=== PATIENT | female | born 1960 | race Caucasian/White ===

== ENCOUNTER 2023-01-21 20:44 | Observation (INO) ==
[2023-01-21 22:22] LABS: Appearance Urine Clear (Clear); Bacteria Urine Automated Negative (Negative); Bilirubin Urine Negative (Negative); Blood Urine Negative (Negative); Cast Urine Automated 0 /lpf (0-5); Color Urine Yellow; Epithelial Cell Urine Auto 20-30 /lpf (0-5); Glucose Urine UA 3+ (Negative); Ketones Urine Negative (Negative); Leukocyte Esterase Urine 2+ (Negative); Nitrite Urine Negative (Negative); Protein Urine Negative (Negative); RBC Urine Automated 0-4 /hpf (0-4); Specific Gravity Urine 1.023 (1.000-1.030); Urobilinogen Urine Negative (Negative); WBC Urine Automated >30 /hpf (0-5)
[2023-01-21 22:23] LABS: Basophils # (auto) 0.07 K/uL (0-0.2); Basophils % (auto) 0.7 %; Eosinophils # (auto) 0.17 K/uL (0-0.50); Eosinophils % (auto) 1.7 %; Hematocrit (blood only) 45.3 % (37.0-47.0); Hemoglobin 16.1 g/dl (12.0-16.0); Immature Granulocytes # (auto) 0.03 K/uL (0.01-0.20); Immature Granulocytes % (auto) 0.3 %; Lymphocytes # (auto) 4.33 K/uL (1.2-3.4); Lymphocytes % (auto) 44.1 %; Mean Corpuscular Hemoglobin 32.8 pg (25.0-34.0); Mean Corpuscular Hgb Conc 35.5 g/dL (32.0-36.0); Mean Corpuscular Volume 92.3 fL (80.0-100.0); Mean Platelet Volume 10.8 fL (9.4-12.4); Monocytes # (auto) 0.52 K/uL (0.11-0.59); Monocytes % (auto) 5.3 %; Neutrophils % (auto) 47.9 %; Platelet Count 352 K/uL (130-400); RDW Coefficient of Variation 12.6 % (11.5-14.5); RDW Standard Deviation 42.5 fL (36.4-46.3); Red Blood Count 4.91 M/uL (4.20-5.40); White Blood Count 9.82 K/ul (4.8-10.8)
[2023-01-21 22:41] LABS: Albumin Globulin Ratio 1.6 (0.9-2); Albumin Level 4.6 gm/dl (3.4-5.0); BUN Creatinine Ratio 16.3 (10-20); Bilirubin,Total 0.3 mg/dl (0.2-1.0); Est GFR (African American) 54.8 ml/min; Est GFR (Non-African American) 47.3 ml/min; Globulin 2.8 gm/dl (2.5-4.0); Magnesium 2.1 mg/dl (1.7-2.4); Potassium 3.8 mmol/L (3.5-5.1); Total Protein 7.4 gm/dl (6.0-8.3)
[2023-01-21 22:46] LABS: Troponin I High Sensitivity 3.7 pg/ml (0-14)
[2023-01-21 22:50] LABS: Partial Thromboplastin Time 27.6 Seconds (21.0-31.0); Prothrombin Time 11.2 Seconds (9.0-12.0)
--- NOTE | 2023-01-21 23:08 | CT Scan Report ---
Exam(s): CT HEAD Without Contrast EXAM: CT Head Without Intravenous Contrast CLINICAL HISTORY: Reason for exam: left visual field disturbance, afib/flutter. TECHNIQUE: Axial computed tomography images of the head/brain without intravenous contrast. CTDI is 37.69 mGy and DLP is 624.41 mGy-cm. Automated exposure control was utilized for the study. A dose lowering technique was utilized adhering to the principles of ALARA. COMPARISON: No relevant prior studies available. FINDINGS: No acute intracranial hemorrhage. No midline shift or mass effect. The territorial acosta-white matter differentiation is maintained throughout. Age-related cerebral volume loss. The visualized orbits appear grossly unremarkable. The calvarium is intact. The visualized paranasal sinuses and mastoid air cells are grossly clear. IMPRESSION: No acute intracranial hemorrhage, midline shift, or mass effect. Electronically signed by: Brian Harrell MD 01/21/23 23:07 PM
[2023-01-22] MEDS ORDERED: ACETAMINOPHEN 500 MG TAB PO STA (00:19)
--- NOTE | 2023-01-22 00:25 | Emergency Department Note ---
Impression & Plan Stroke-like symptoms, Paroxysmal atrial flutter ED Provider Note INFORMANT: Patient ED PROVIDER(S): Leonard Fall MD CHIEF COMPLAINT: Visual disturbance PLAN: Disposition: Admitted Condition: Good Outpatient prescription management: none Referral: None MEDICAL DECISION MAKING: Patient presented to the emergency room because of complaints of visual disturbance. She had resolution of symptoms. She had no pain. Her physical examination including neurologic examination was nonfocal. Funduscopic examination on a nondilated eye did not reveal any obvious abnormalities. The patient underwent a work-up. She was placed on the court recording monitor and blood work was obtained. Her CBC and chemistry panels were unremarkable. Urinalysis was unremarkable as well. The patient was found to have periods of paroxysmal rapid atrial flutter. She was then slowdown in break out of the flutter into sinus rhythm. This happened numerous times. This was captured on ECG. Patient has a history of SVT and does follow with [facility] electrophysiology. She states they did discuss ablation. Because of that problem she was placed on anticoagulation. Head CT did not reveal any acute findings. Given the rhythm changes and transient visual issue without any other findings there is some concern for possible TIA. Due to this I discussed conservative management with the patient regarding a TIA work-up in the hospital. She was in agreement. I did order MR imaging. Patient did not have angiography performed because she notes a history of dye allergy. It appears that this is related to MR contrast but I could not confirm after discussion with CT if she has had any CT reactions or successful CT dye studies. Echocardiogram may be beneficial as well. After patient returned from CT imaging she did request Tylenol for mild headache. Consultation was made with Dr. Celestino Alcantar, [facility] hospitalist service. Case was discussed and diagnostics were reviewed. Patient was evaluated in the ER for further management. Discussed with storage center manager After review of the information above and other included data, I feel the patient requires further management in the hospital. Triage Nursing notes reviewed and agree them. Vital Signs: reviewed and remarkable for periods of tachycardia Prior /Outside records reviewed: none Differential diagnosis: TIA, CVA, conjunctivitis, trauma, corneal abrasion, hyphema, glaucoma, iritis, corneal ulcer, dendrite, CRAO, CRVO, vitreous detachment, retinal detachment, migraine, as well as other pathologies. Diagnostics, as interpreted by me: ECG: none Cardiac Monitoring: Order for court recording monitor placed by me. This revealed paroxysmal atrial flutter with rates up to 135 bpm. Medical decision rules: none Imaging studies: Head CT: A noncontrast CT scan of the head was performed and was negative for tumor, fracture, intracranial hemorrhage, or other acute pathol ogy. HPI: The patient is a 62year old female who presents to the Emergency Room with complaints of right eye visual disturbance. This started just prior to arrival and is currently resolved. Patient noted difficulty seeing and having flashing sensation out of the lateral half of her right eye. Patient had no pain. Denies any trauma. No prior history of the same. The patient also notes the following associated symptoms, none. The patient has taken no medication for relieving factors. Current pain is rated as 0/10. Pt denies LOC, headache, fevers, chills, diaphoresis, neck pain, chest pain, breathing difficulties, nausea, vomiting, abdominal pain, back pain, melena, hematochezia, urinary symptoms, numbness, weakness, lymphadenopathy, rash, or other complaints. PAST MEDICAL HISTORY: See below, PAULA Varghese PAST SURGICAL HISTORY: See Below, SOCIAL HISTORY: See Below, non-smoker HOME MEDICATIONS: See Below ALLERGIES: See Below VITALS: See Below PHYSICAL EXAMINATION: GENERAL: Awake, alert, well-appearing, in no distress HENT: Normocephalic, atraumatic. Oropharynx unremarkable. EYES: Normal conjunctiva. Sclera non-icteric. PERRLA. EOMI. Fundi normal. NECK: Inspection normal. Non-tender. Supple. No nuchal rigidity. FROM. No masses. RESPIRATORY: Clear to auscultation. No wheezes. No rales. Normal respiratory effort. CARDIAC: Normal rate. Normal rhythm. No murmurs. No rubs. Extremities warm and well perfused. Pulses equal. No JVD. GI: Soft, non-distended. No tenderness to palpation. No rebound or guarding. No masses. MUSCULOSKELETAL: Atraumatic. Chest examination reveals no tenderness. The back is symmetrical on inspection without obvious abnormality. There is no CVA tenderness to palpation. No joint edema. LOWER EXTREMITIES: Calves are equal size bilaterally and non-tender. No edema. No discoloration. NEURO: Normal sensorium. No sensory or motor deficits noted. Cranial nerves II through XII intact. No drift speech normal. SKIN: No rash or jaundice noted. Past Med/Surg History Medical History (Updated 01/22/23 @ 00:25 by Leonard Fall MD) Allergic rhinitis Arthralgia Asthma Chronic sinusitis Endometrial polyp History of colon polyps Hypertrophy of nasal turbinates Hypothyroidism Migraine Mitral valve prolapse No noted MVP, + mild MR per 05/31/20 echo Myasthenia gravis Possible Per neurology 12/2020, "Current examination does not really fit, nor testing that would be congruent with MG (negative antibodies/no decrement on EMG). Myofascial pain syndrome Paroxysmal A-fib Single episode of court recording monitor. Per cardiology (07/13/21): "CHADS- VASc = 1 (gender).. No pharmacologic therapy is necessary.. Return to clinic as needed." Prediabetes Surgical History History of colonoscopy Colonoscopy (08/28/19): MAC, no issues per anesthesia progress note History of malignant hyperthermia Patient had post-op fever, syncope after sinus surgery (15 years) > was told to tell future providers she had "Malignant hyperthermia" History of sinus surgery x2 History of surgery on right wrist History of unilateral salpingectomy Family History Mother Family hx of colon cancer Heart disease Colorectal cancer Father Diabetes Dementia Heart disease Myocardial infarction Other No family history of adverse response to anesthesia Denies family history of Ovarian cancer Prostate cancer Breast cancer Social History Smoking Status: Never smoker Tobacco Type: Cigarettes Age Started Using Tobacco: 18; Age Quit Using Tobacco: 46; Second Hand Exposure: No; Do You Dip or Chew Tobacco: No; Hx Alcohol Use: No Hx Substance Use: No Preferred Language: Danish Communication Ability: Effective Visual Impairment: No Limitations Hearing Ability: Normal Char Filter Operator Helper Required: No Beliefs That Will Affect Care: None marital status: Single Current Living Situation: Alone current occupational status: unemployed How many Children do You have: 0 Feels Safe at Home: Yes Childhood Exposure to Second-Hand Smoke: No Diet: regular Dental Care, Regularly: Yes Physical Activity Frequency: Daily Seatbelt Use: always Sunscreen Use: Yes Assistive Devices: None Allergies Allergies Allergy/AdvReac Type Severity Reaction Status Date / Time Penicillins Allergy Mild Unknown-CHILDHOOD Verified 01/16/23 09:39 REACTION-GI? latex Allergy Unknown Skin Verified 01/16/23 09:39 redness-RASH fentanyl AdvReac Severe Vomiting-"MAKES Verified 01/16/23 09:39 PT VERY ILL" doxycycline AdvReac Intermediate Vomiting Verified 01/16/23 09:39 Gadolinium-Containing AdvReac Intermediate Verified 01/16/23 09:39 Contrast Medi morphine AdvReac Unknown Unknown Verified 01/16/23 09:39 Home Meds Home Medications Medication Instructions Recorded Confirmed cetirizine 10 mg tablet (Zyrtec) 10 mg PO QAM 08/22/19 01/16/23 ascorbic acid (vitamin C) 1,000 mg 1,000 mg PO QAM 11/17/20 01/16/23 tablet,extended release calcium [calcium citrate] 600 mg PO QAM 11/17/20 01/16/23 coenzyme Q10 100 mg capsule 100 mg PO DAILY qam 11/17/20 01/16/23 fluticasone furoate 27.5 1 spray intranasal DAILY PRN 11/17/20 01/16/23 mcg/actuation nasal allergy symptoms spray,suspension (Flonase Sensimist) magnesium gluconate 27 mg 27 mg PO QAM 11/17/20 01/16/23 magnesium (500 mg) tablet albuterol sulfate 90 mcg/actuation 1 inh inhalation QID PRN sob 07/28/21 01/16/23 aerosol inhaler albuterol sulfate 2.5 mg/3 mL 2.5 mg inhalation Q4H PRN Wheezing 06/07/22 01/16/23 (0.083 %) solution for nebulization apixaban 5 mg tablet 5 mg PO BID 06/07/22 01/16/23 mupirocin 2 % topical ointment 1 applic topical BID 06/07/22 01/16/23 naltrexone 6 mg PO 10/05/22 01/16/23 bromelains 500 mg tablet 500 mg PO DAILY 12/26/22 01/16/23 cholecalciferol (vitamin D3) 25 50 mcg PO QAM 12/26/22 01/16/23 mcg (1,000 unit) capsule cholecalciferol (vitamin D3) 50 50 mcg PO DAILY 12/26/22 01/16/23 mcg (2,000 unit) capsule empagliflozin 10 mg tablet 10 mg PO DAILY 12/26/22 01/16/23 (Jardiance) mecobalamin (vitamin B12) 1,000 1,000 mcg PO DAILY 12/26/22 01/16/23 mcg chewable tablet metoprolol succinate 50 mg 50 mg PO DAILY 12/26/22 01/16/23 tablet,extended release 24 hr phytonadione (vitamin K1) 100 mcg 100 mcg PO DAILY 12/26/22 01/16/23 tablet quercetin 500 mg capsule 530 mg PO 12/26/22 01/16/23 thyroid (pork) 60 mg tablet (CONSERVATION TECHNICIAN 60 mg PO 3XWK 12/26/22 01/16/23 Thyroid) vitamin K2 100 mcg capsule 400 mcg PO DAILY 12/26/22 01/16/23 zinc acetate 50 mg (zinc) capsule 50 mg PO DAILY 12/26/22 01/16/23 (Galzin) colchicine 0.6 mg capsule 0.6 mg PO BID 01/16/23 01/16/23 Previous Rx's Medication Instructions Recorded thyroid (pork) 120 mg tablet (CONSERVATION TECHNICIAN 120 mg PO DAILY #30 tabs 10/23/22 Thyroid) Results & Data (ED) Vital Signs Vital Signs - 24 hr 01/21/23 20:51 01/21/23 22:06 Temperature 36.7 C Temperature Source Temporal Artery Scan Pulse Rate 77 Pulse Rate [Apical] 135 H Pulse Rhythm [Apical] Regular Pulse Strength [Apical] Normal Respiratory Rate 18 13 Respiratory Effort / Characteristics Non-Labored Spontaneous Respiratory Depth Normal Respiratory Pattern Regular Blood Pressure 144/68 H Blood Pressure [Left Arm] 141/100 H Blood Pressure Mean 93 Blood Pressure Mean [Left Arm] 113 Blood Pressure Position [Left Arm] Semi-fowlers Pulse Oximetry 98 98 Oxygen Delivery Method Room Air Room Air Sepsis Recent Fever Within 48 Hours No Sepsis New/Unexplained Change in Mental Status No Sepsis Action Taken by Nursing No Action Required Laboratory Data 01/21/23 21:56 01/21/23 21:56 Lab Results 01/21/23 01/21/23 01/21/23 Range/Units 21:56 21:56 21:56 WBC 9.82 (4.8-10.8) K/ul RBC 4.91 (4.20-5.40) M/uL Hgb 16.1 H (12.0-16.0) g/dl Hct 45.3 (37.0-47.0) % MCV 92.3 (80.0-100.0) fL MCH 32.8 (25.0-34.0) pg MCHC 35.5 (32.0-36.0) g/dL RDW Std Deviation 42.5 (36.4-46.3) fL RDW Coeff of Adams 12.6 (11.5-14.5) % Plt Count 352 (130-400) K/uL MPV 10.8 (9.4-12.4) fL Immature Gran % (Auto) 0.3 % Neut % (Auto) 47.9 % Lymph % (Auto) 44.1 % [place] % (Auto) 5.3 % Eos % (Auto) 1.7 % Baso % (Auto) 0.7 % Neut # (Auto) 4.70 (1.40-6.50) K/uL Lymph # (Auto) 4.33 H (1.2-3.4) K/uL [place] # (Auto) 0.52 (0.11-0.59) K/uL Eos # (Auto) 0.17 (0-0.50) K/uL Baso # (Auto) 0.07 (0-0.2) K/uL Immature Gran # (Auto) 0.03 (0.01-0.20) K/uL PT 11.2 (9.0-12.0) Seconds INR 1.0 (0.9-1.1) APTT 27.6 (21.0-31.0) Seconds PTT Ratio 1.0 Sodium 141 (136-145) mmol/L Potassium 3.8 (3.5-5.1) mmol/L Chloride 105 (98-107) mmol/L Carbon Dioxide 30 (21-32) mmol/L Anion Gap 6 (3-11) BUN 20 (6-23) mg/dl Creatinine 1.23 H (0.6-1.2) mg/dl Est Cr Clr Drug Dosing 59.0 ml/min Est GFR ( Amer) 54.8 ml/min Est GFR (Non-Af Amer) 47.3 ml/min BUN/Creatinine Ratio 16.3 (10-20) Glucose 97 (70-99(Fasting)) mg/dl Calcium 10.0 (8.6-10.3) mg/dl Magnesium 2.1 (1.7-2.4) mg/dl Total Bilirubin 0.3 (0.2-1.0) mg/dl AST 30 (13-39) U/L ALT 57 H (7-52) U/L Alkaline Phosphatase 57 (34-104) U/L Troponin I High Sens 3.7 (0-14) pg/ml Total Protein 7.4 (6.0-8.3) gm/dl Albumin 4.6 (3.4-5.0) gm/dl Globulin 2.8 (2.5-4.0) gm/dl Albumin/Globulin Ratio 1.6 (0.9-2) Urine Color Urine Appearance (Clear) Urine pH (4.5-7.5) Ur Specific Fackler (1.000-1.030) Urine Protein (Negative) Urine Glucose (UA) (Negative) Urine Ketones (Negative) Urine Blood (Negative) Urine Nitrite (Negative) Urine Bilirubin (Negative) Urine Urobilinogen (Negative) Ur Leukocyte Esterase (Negative) Urine WBC (Auto) (0-5) /hpf Urine RBC (Auto) (0-4) /hpf U Hyaline Cast (Auto) (0-5) /lpf U Epithel Cells (Auto) (0-5) /lpf Urine Bacteria (Auto) (Negative) SARS-CoV-2, RNA, NAAT (NEGATIVE) 01/21/23 01/21/23 Range/Units 22:05 23:00 WBC (4.8-10.8) K/ul RBC (4.20-5.40) M/uL Hgb (12.0-16.0) g/dl Hct (37.0-47.0) % MCV (80.0-100.0) fL MCH (25.0-34.0) pg MCHC (32.0-36.0) g/dL RDW Std Deviation (36.4-46.3) fL RDW Coeff of Adams (11.5-14.5) % Plt Count (130-400) K/uL MPV (9.4-12.4) fL Immature Gran % (Auto) % Neut % (Auto) % Lymph % (Auto) % [place] % (Auto) % Eos % (Auto) % Baso % (Auto) % Neut # (Auto) (1.40-6.50) K/uL Lymph # (Auto) (1.2-3.4) K/uL [place] # (Auto) (0.11-0.59) K/uL Eos # (Auto) (0-0.50) K/uL Baso # (Auto) (0-0.2) K/uL Immature Gran # (Auto) (0.01-0.20) K/uL PT (9.0-12.0) Seconds INR (0.9-1.1) APTT (21.0-31.0) Seconds PTT Ratio Sodium (136-145) mmol/L Potassium (3.5-5.1) mmol/L Chloride (98-107) mmol/L Carbon Dioxide (21-32) mmol/L Anion Gap (3-11) BUN (6-23) mg/dl Creatinine (0.6-1.2) mg/dl Est Cr Clr Drug Dosing ml/min Est GFR ( Amer) ml/min Est GFR (Non-Af Amer) ml/min BUN/Creatinine Ratio (10-20) Glucose (70-99(Fasting)) mg/dl Calcium (8.6-10.3) mg/dl Magnesium (1.7-2.4) mg/dl Total Bilirubin (0.2-1.0) mg/dl AST (13-39) U/L ALT (7-52) U/L Alkaline Phosphatase (34-104) U/L Troponin I High Sens (0-14) pg/ml Total Protein (6.0-8.3) gm/dl Albumin (3.4-5.0) gm/dl Globulin (2.5-4.0) gm/dl Albumin/Globulin Ratio (0.9-2) Urine Color Yellow Urine Appearance Clear (Clear) Urine pH 6.0 (4.5-7.5) Ur Specific [place] 1.023 (1.000-1.030) Urine Protein Negative (Negative) Urine Glucose (UA) 3+ H (Negative) Urine Ketones Negative (Negative) Urine Blood Negative (Negative) Urine Nitrite Negative (Negative) Urine Bilirubin Negative (Negative) Urine Urobilinogen Negative (Negative) Ur Leukocyte Esterase 2+ H (Negative) Urine WBC (Auto) >30 H (0-5) /hpf Urine RBC (Auto) 0-4 (0-4) /hpf U Hyaline Cast (Auto) 0 (0-5) /lpf U Epithel Cells (Auto) 20-30 H (0-5) /lpf Urine Bacteria (Auto) Negative (Negative) SARS-CoV-2, RNA, NAAT NEGATIVE (NEGATIVE) Imaging Data Radiologist's Impression: Head CT 01/21/23 22:00 Exam(s): CT HEAD Without Contrast EXAM: CT Head Without Intravenous Contrast CLINICAL HISTORY: Reason for exam: left visual field disturbance, afib/flutter. TECHNIQUE: Axial computed tomography images of the head/brain without intravenous contrast. CTDI is 37.69 mGy and DLP is 624.41 mGy-cm. Automated exposure control was utilized for the study. A dose lowering technique was utilized adhering to the principles of ALARA. COMPARISON: No relevant prior studies available. FINDINGS: No acute intracranial hemorrhage. No midline shift or mass effect. The territorial acosta-white matter differentiation is maintained throughout. Age-related cerebral volume loss. The visualized orbits appear grossly unremarkable. The calvarium is intact. The visualized paranasal sinuses and mastoid air cells are grossly clear. IMPRESSION: No acute intracranial hemorrhage, midline shift, or mass effect. Electronically signed by: Brian Harrell MD 01/21/23 23:07 PM Discharge Plan Visit Data Chief Complaint: Visual Disturbance Stated Complaint: BLURRY AND FLASHES EYESIGHT,JAW PAIN ED Provider: Leonard Fall Discharge Problem: Stroke-like symptoms, Paroxysmal atrial flutter Forms Stand Alone Forms: [facility] [employer] Prescriptions Prescriptions: No Action colchicine 0.6 mg capsule 0.6 mg PO BID thyroid (pork) [CONSERVATION TECHNICIAN Thyroid] 120 mg tablet 120 mg PO DAILY Qty: 30 0RF Rx Instructions: Take with 60mg tablet to total 180mg daily coenzyme Q10 100 mg capsule 100 mg PO DAILY magnesium gluconate 27 mg magnesium (500 mg) tablet 27 mg PO QAM ascorbic acid (vitamin C) 1,000 mg tablet extended release 1,000 mg PO QAM calcium 600 mg PO QAM Flonase Sensimist 27.5 mcg/actuation spray,suspension 1 spray intranasal DAILY PRN (Reason: allergy symptoms) Rx Instructions: into each nostril cholecalciferol (vitamin D3) 25 mcg (1,000 unit) capsule 50 mcg PO QAM naltrexone 6 mg PO CONSERVATION TECHNICIAN Thyroid 60 mg tablet 60 mg PO 3XWK Rx Instructions: Mon,WED,Fri vitamin K2 100 mcg capsule 400 mcg PO DAILY phytonadione (vitamin K1) 100 mcg tablet 100 mcg PO DAILY mecobalamin (vitamin B12) 1,000 mcg tablet,chewable 1,000 mcg PO DAILY bromelains 500 mg tablet 500 mg PO DAILY Rx Instructions: administer after a meal cholecalciferol (vitamin D3) 50 mcg (2,000 unit) capsule 50 mcg PO DAILY Galzin 50 mg (zinc) capsule 50 mg PO DAILY quercetin 500 mg capsule 530 mg PO metoprolol succinate 50 mg tablet extended release 24 hr 50 mg PO DAILY Jardiance 10 mg tablet 10 mg PO DAILY cetirizine [Zyrtec] 10 mg Tablet 10 mg PO QAM albuterol sulfate 90 mcg/actuation Hfa Aerosol Inhaler 1 inh INHALATION QID PRN (Reason: sob) albuterol sulfate [Proventil] 2.5 mg /3 mL (0.083 %) Solution For Nebulization 2.5 mg INHALATION Q4H PRN (Reason: Wheezing) apixaban 5 mg Tablet 5 mg PO BID mupirocin 2 % ointment 1 applic topical BID Referrals Referrals: Mike Jenkins MD [Primary Care Provider] -
[2023-01-22] MEDS ORDERED: POTASSIUM CHLORIDE CRTAB 20 MEQ TABCR PO STA (00:29)
[2023-01-22] MEDS ORDERED: ALBUMIN 25% 25 GM/100 ML VIAL IV ONE (01:16)
--- NOTE | 2023-01-22 01:25 | Magnetic Resonance Report ---
Exam(s): MRI HEAD Without Contrast EXAM: MR Head Without Intravenous Contrast CLINICAL HISTORY: Reason for exam: stroke like symptoms, right visual disturbance. TECHNIQUE: Magnetic resonance images of the head/brain without intravenous contrast in multiple planes. COMPARISON: No relevant prior studies available. FINDINGS: Brain: Unremarkable. No mass. No hemorrhage. No acute infarct. Ventricles: Unremarkable. No ventriculomegaly. Bones/joints: Unremarkable. Sinuses: Unremarkable as visualized. No acute sinusitis. Mastoid air cells: Unremarkable as visualized. No mastoid effusion. Orbits: Unremarkable as visualized. IMPRESSION: Normal head/brain MRI. Electronically signed by: Brian Harrell MD 01/22/23 01:24 AM
[2023-01-22] MEDS: DIGOXIN 500 MCG/2 ML AMP IV ONE ×2 (02:25→02:28)
[2023-01-22] MEDS ORDERED: APIXABAN 5 MG TABLET PO STA (02:38)
[2023-01-22] MEDS ORDERED: ASPIRIN 81 MG CHEW PO STA (02:38)
--- NOTE | 2023-01-22 02:39 | History & Physical Report ---
Date of Service January 22, 2023 Assessment & Plan (1) Transient visual disturbance, right: Plan: TIA versus complicated migraine PAF on Eliquis, episodic atrial flutter noted at the ER DM 2 on oral medications, well-controlled as of recent hemoglobin A1c of 6.5 last September 2022 hypothyroidism, TSH elevated, FT4 within normal limits bronchial asthma, stable anxiety/mood disorder, patient mildly anxious during encounter long COVID-19 syndrome/ polyarthralgia/idiopathic polyneuropathy on naltrexone, colchicine tickborne infection status post Rx past tobacco abuse OBS PCU given paroxysmal atrial flutter episodes Neurochecks aspirin for secondary stroke prevention for now TTE, carotid Dopplers for stroke work-up Neurology consult Re: Transient visual disturbance with headache symptoms Basal bolus insulin, ISS BG goal 1 10-1 40, carb count coverage, update hemoglobin A1c DVT prophylaxis. Eliquis Full code Text document was generated using Peak voice recognition software. It may contain grammatical or spelling errors. Kindly contact undersigned for clarification of any documentation item in question. History of Present Illness Chief Complaint: Headache, right eye visual disturbance Primary Care Provider: Mike Jenkins MD History obtained from patient and records. Medical history significant for PAF on Eliquis, DM 2 on oral medications, hypothyroidism, bronchial asthma, anxiety/mood disorder, polyarthralgia, idiopathic polyneuropathy as per records, long COVID-19 syndrome on naltrexone, migraine, tickborne infection status post Rx, past tobacco abuse. Last 2010 for low back pain. Patient had transient blurred vision on the right eye described as flashing later followed by achy headache different from usual migraine attack. No chest pain, no SOB. No prior episodes. Transient atrial flutter noted at the ER. Patient currently comfortable except for mild headache symptoms. 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 latex Allergy Unknown Skin Verified 01/16/23 09:39 redness-RASH fentanyl AdvReac Severe Vomiting-"MAKES Verified 05/09/23 09:39 PT VERY ILL" doxycycline AdvReac Intermediate Vomiting Verified 01/16/23 09:39 Gadolinium-Containing AdvReac Intermediate Verified 01/16/23 09:39 Contrast Medi morphine AdvReac Unknown Unknown Verified 01/16/23 09:39 Home Medications Medication Instructions Recorded Confirmed Type cetirizine 10 mg tablet (Zyrtec) 10 mg PO QAM 08/22/19 01/22/23 History ascorbic acid (vitamin C) 1,000 mg 1,000 mg PO QAM 11/17/20 01/22/23 History tablet,extended release coenzyme Q10 100 mg capsule 100 mg PO HS qam 11/17/20 01/22/23 History fluticasone furoate 27.5 1 spray intranasal DAILY PRN 11/17/20 01/22/23 History mcg/actuation nasal allergy symptoms spray,suspension (Flonase Sensimist) magnesium gluconate 27 mg 27 mg PO HS 11/17/20 01/22/23 History magnesium (500 mg) tablet albuterol sulfate 90 mcg/actuation 1 inh inhalation QID PRN sob 07/28/21 01/22/23 History aerosol inhaler albuterol sulfate 2.5 mg/3 mL 2.5 mg inhalation Q4H PRN Wheezing 06/07/22 01/22/23 History (0.083 %) solution for nebulization apixaban 5 mg tablet 5 mg PO BID 06/07/22 01/22/23 History mupirocin 2 % topical ointment 1 applic topical BID PRN flares 06/07/22 01/22/23 History naltrexone 6 mg PO HS 10/05/22 01/22/23 History thyroid (pork) 120 mg tablet (PIPELINE DISPATCH OPERATOR 120 mg PO DAILY #30 tabs 10/23/22 01/22/23 Rx Thyroid) bromelains 500 mg tablet 500 mg PO HS 12/26/22 01/22/23 History cholecalciferol (vitamin D3) 25 50 mcg PO QAM 12/26/22 01/22/23 History mcg (1,000 unit) capsule empagliflozin 10 mg tablet 10 mg PO QAM 12/26/22 01/22/23 History (Jardiance) metoprolol succinate 50 mg 50 mg PO QAM 12/26/22 01/22/23 History tablet,extended release 24 hr quercetin 500 mg capsule 500 mg PO QAM 12/26/22 01/22/23 History thyroid (pork) 60 mg tablet (PIPELINE DISPATCH OPERATOR 60 mg PO 3XWK 12/26/22 01/22/23 History Thyroid) zinc acetate 50 mg (zinc) capsule 50 mg PO QAM 12/26/22 01/22/23 History (Galzin) colchicine 0.6 mg capsule 0.6 mg PO BID 01/16/23 01/22/23 History calcium carbonate 600 mg calcium 600 mg PO QPM 01/22/23 01/22/23 History (1,500 mg) tablet (Calcium) cyanocobalamin (vitamin B-12) 1,000 mcg PO QAM 01/22/23 01/22/23 History 1,000 mcg tablet (Vitamin B-12) famotidine 20 mg tablet 20 mg PO DAILY PRN Heartburn 01/22/23 01/22/23 History metronidazole 1 % topical gel 1 applic topical QAM 01/22/23 01/22/23 History (Metrogel) triamcinolone acetonide 0.1 % 1 applic topical BID 01/22/23 01/22/23 History topical cream Past Med/Surg History Medical History Allergic rhinitis Arthralgia Asthma Chronic sinusitis Endometrial polyp History of colon polyps Hypertrophy of nasal turbinates Hypothyroidism Migraine Mitral valve prolapse No noted MVP, + mild MR per 05/31/20 echo Myasthenia gravis Possible Per neurology 12/2020, "Current examination does not really fit, nor testing that would be congruent with MG (negative antibodies/no decrement on EMG). Myofascial pain syndrome Paroxysmal A-fib Single episode of cardiac cath technologist. Per cardiology (07/13/21): "CHADS- VASc = 1 (gender).. No pharmacologic therapy is necessary.. Return to clinic as needed." Prediabetes Surgical History History of colonoscopy Colonoscopy (08/28/19): MAC, no issues per anesthesia progress note History of malignant hyperthermia Patient had post-op fever, syncope after sinus surgery (15 years) > was told to tell future providers she had "Malignant hyperthermia" History of sinus surgery x2 History of surgery on right wrist History of unilateral salpingectomy Family History Mother Family hx of colon cancer Heart disease Colorectal cancer Father , age 80 with dementia and heart disease Diabetes Dementia Heart disease Myocardial infarction Other No family history of adverse response to anesthesia Denies family history of Ovarian cancer Prostate cancer Breast cancer Social History (Updated 01/22/23 @ 09:10 by Tacho Hoyos MD) Smoking Status: Former smoker Tobacco Type: Cigarettes Age Started Using Tobacco: 18; Age Quit Using Tobacco: 49; packs per day: 1.5; Second Hand Exposure: No; Do You Dip or Chew Tobacco: No; Tobacco Cessation Education Requested by Patient: No Hx Alcohol Use: No Hx Substance Use: No Preferred Language: Croatian Communication Ability: Effective Visual Impairment: No Limitations Hearing Ability: Normal Cruise Agent Required: No Beliefs That Will Affect Care: None marital status: Single Current Living Situation: Alone current occupational status: unemployed 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 How many Children do You have: 0 Other Information That Helps Us Care for You: No Feels Safe at Home: Yes Safety Concerns: Feels Safe At This Time Childhood Exposure to Second-Hand Smoke: No Diet: regular Dental Care, Regularly: Yes Physical Activity Frequency: Daily Seatbelt Use: always Sunscreen Use: Yes Assistive Devices: None Review of Systems Review of Systems: As per HPI, all other systems reviewed and negative Physical Exam Physical Exam: GENERAL: Comfortable, obese, slightly anxious, no respiratory distress SKIN: Normal color, warm HEENT: [place] palpebral conjunctivae, no ptosis, dry buccal mucosa NECK : Supple, short neck, no tenderness CHEST : CTA, no tenderness HEART : RRR, no obvious murmurs ABDOMEN: Some distention, nontender EXTREMITIES : Minimal LE swelling, no LE tenderness, no other conspicuous deformities noted NEUROLOGIC : Coherent, no facial asymmetry, no other gross focality Results & Data Results & Data Vital Signs (Past 12 Hours) Vital Signs Temp Pulse Pulse Resp BP BP Pulse Ox 01/22/23 00:25 75 01/22/23 02:00 91 01/22/23 01:30 96 01/22/23 01:26 97 01/22/23 00:30 68 12 97 01/22/23 00:24 83 12 93 01/21/23 22:06 135 H 13 141/100 H 98 01/21/23 20:51 36.7 C 77 18 144/68 H 98 O2 Del Method 01/22/23 00:25 01/22/23 02:00 01/22/23 01:30 01/22/23 01:26 01/22/23 00:30 01/22/23 00:24 01/21/23 22:06 Room Air 01/21/23 20:51 Room Air Laboratory Results Laboratory Results WBC 9.82 K/ul (4.8-10.8) 01/21/23 21:56 RBC 4.91 M/uL (4.20-5.40) 01/21/23 21:56 Hgb 16.1 g/dl (12.0-16.0) H 01/21/23 21:56 Hct 45.3 % (37.0-47.0) 01/21/23 21:56 MCV 92.3 fL (80.0-100.0) 01/21/23 21:56 MCH 32.8 pg (25.0-34.0) 01/21/23 21:56 MCHC 35.5 g/dL (32.0-36.0) 01/21/23 21:56 RDW Std Deviation 42.5 fL (36.4-46.3) 01/21/23 21:56 RDW Coeff of [place] 12.6 % (11.5-14.5) 01/21/23 21:56 Plt Count 352 K/uL (130-400) 01/21/23 21:56 MPV 10.8 fL (9.4-12.4) 01/21/23 21:56 Immature Gran % (Auto) 0.3 % 01/21/23 21:56 Neut % (Auto) 47.9 % 01/21/23 21:56 Lymph % (Auto) 44.1 % 01/21/23 21:56 Burt % (Auto) 5.3 % 01/21/23 21:56 Eos % (Auto) 1.7 % 01/21/23 21:56 Baso % (Auto) 0.7 % 01/21/23 21:56 Neut # (Auto) 4.70 K/uL (1.40-6.50) 01/21/23 21:56 Lymph # (Auto) 4.33 K/uL (1.2-3.4) H 01/21/23 21:56 Burt # (Auto) 0.52 K/uL (0.11-0.59) 01/21/23 21:56 Eos # (Auto) 0.17 K/uL (0-0.50) 01/21/23 21:56 Baso # (Auto) 0.07 K/uL (0-0.2) 01/21/23 21:56 Immature Gran # (Auto) 0.03 K/uL (0.01-0.20) 01/21/23 21:56 PT 11.2 Seconds (9.0-12.0) 01/21/23 21:56 INR 1.0 (0.9-1.1) 01/21/23 21:56 APTT 27.6 Seconds (21.0-31.0) 01/21/23 21:56 PTT Ratio 1.0 01/21/23 21:56 Sodium 141 mmol/L (136-145) 01/21/23 21:56 Potassium 3.8 mmol/L (3.5-5.1) 01/21/23 21:56 Chloride 105 mmol/L (98-107) 01/21/23 21:56 Carbon Dioxide 30 mmol/L (21-32) 01/21/23 21:56 Anion Gap 6 (3-11) 01/21/23 21:56 BUN 20 mg/dl (6-23) 01/21/23 21:56 Creatinine 1.23 mg/dl (0.6-1.2) H 01/21/23 21:56 Est Cr Clr Drug Dosing 59.0 ml/min 01/21/23 21:56 Est GFR ( Amer) 54.8 ml/min 01/21/23 21:56 Est GFR (Non-Af Amer) 47.3 ml/min 01/21/23 21:56 BUN/Creatinine Ratio 16.3 (10-20) 01/21/23 21:56 Glucose 97 mg/dl (70-99(Fasting)) 01/21/23 21:56 Calcium 10.0 mg/dl (8.6-10.3) 01/21/23 21:56 Magnesium 2.1 mg/dl (1.7-2.4) 01/21/23 21:56 Total Bilirubin 0.3 mg/dl (0.2-1.0) 01/21/23 21:56 AST 30 U/L (13-39) 01/21/23 21:56 ALT 57 U/L (7-52) H 01/21/23 21:56 Alkaline Phosphatase 57 U/L (34-104) 01/21/23 21:56 Troponin I High Sens 3.7 pg/ml (0-14) 01/21/23 21:56 Total Protein 7.4 gm/dl (6.0-8.3) 01/21/23 21:56 Albumin 4.6 gm/dl (3.4-5.0) 01/21/23 21:56 Globulin 2.8 gm/dl (2.5-4.0) 01/21/23 21:56 Albumin/Globulin Ratio 1.6 (0.9-2) 01/21/23 21:56 Urine Color Yellow 01/21/23 22:05 Urine Appearance Clear (Clear) 01/21/23 22:05 Urine pH 6.0 (4.5-7.5) 01/21/23 22:05 Ur Specific [place] 1.023 (1.000-1.030) 01/21/23 22:05 Urine Protein Negative (Negative) 01/21/23 22:05 Urine Glucose (UA) 3+ (Negative) H 01/21/23 22:05 Urine Ketones Negative (Negative) 01/21/23 22:05 Urine Blood Negative (Negative) 01/21/23 22:05 Urine Nitrite Negative (Negative) 01/21/23 22:05 Urine Bilirubin Negative (Negative) 01/21/23 22:05 Urine Urobilinogen Negative (Negative) 01/21/23 22:05 Ur Leukocyte Esterase 2+ (Negative) H 01/21/23 22:05 Urine WBC (Auto) >30 /hpf (0-5) H 01/21/23 22:05 Urine RBC (Auto) 0-4 /hpf (0-4) 01/21/23 22:05 U Hyaline Cast (Auto) 0 /lpf (0-5) 01/21/23 22:05 U Epithel Cells (Auto) 20-30 /lpf (0-5) H 01/21/23 22:05 Urine Bacteria (Auto) Negative (Negative) 01/21/23 22:05 SARS-CoV-2, RNA, NAAT NEGATIVE (NEGATIVE) 01/21/23 23:[address] 01/21/23 22:00 Exam(s): CT HEAD Without Contrast EXAM: CT Head Without Intravenous Contrast CLINICAL HISTORY: Reason for exam: left visual field disturbance, afib/flutter. TECHNIQUE: Axial computed tomography images of the head/brain without intravenous contrast. CTDI is 37.69 mGy and DLP is 624.41 mGy-cm. Automated exposure control was utilized for the study. A dose lowering technique was utilized adhering to the principles of ALARA. COMPARISON: No relevant prior studies available. FINDINGS: No acute intracranial hemorrhage. No midline shift or mass effect. The territorial acosta-white matter differentiation is maintained throughout. Age-related cerebral volume loss. The visualized orbits appear grossly unremarkable. The calvarium is intact. The visualized paranasal sinuses and mastoid air cells are grossly clear. IMPRESSION: No acute intracranial hemorrhage, midline shift, or mass effect. Electronically signed by: Brian Harrell MD 01/21/23 23:07 PM Brain MRI 01/22/23 00:15 Exam(s): MRI HEAD Without Contrast EXAM: MR Head Without Intravenous Contrast CLINICAL HISTORY: Reason for exam: stroke like symptoms, right visual disturbance. TECHNIQUE: Magnetic resonance images of the head/brain without intravenous contrast in multiple planes. COMPARISON: No relevant prior studies available. FINDINGS: Brain: Unremarkable. No mass. No hemorrhage. No acute infarct. Ventricles: Unremarkable. No ventriculomegaly. Bones/joints: Unremarkable. Sinuses: Unremarkable as visualized. No acute sinusitis. Mastoid air cells: Unremarkable as visualized. No mastoid effusion. Orbits: Unremarkable as visualized. IMPRESSION: Normal head/brain MRI. Electronically signed by: Brian Harrell MD 01/22/23 01:24 AM Diagnostic Findings Chest x-ray per my interpretation : cardiomegaly, atelectasis EKG as per my interpretation : Rate 75, NSR, normal axis, T wave abnormality septal leads
[2023-01-22 03:12] LABS: Thyroid Stimulating Hormone 13.224 uIu/ml (0.300-4.500)
[2023-01-22 03:47] LABS: T4 Free Thyroxine 0.63 ng/dl (0.61-1.60)
[2023-01-22 03:52] LABS: Lyme Ab IgG w/WB Rflx Negative (Negative); Lyme Ab IgM w/WB Rflx Negative (Negative)
[2023-01-22] MEDS ORDERED: ACETAMINOPHEN 325 MG TAB PO PRN (05:47)
[2023-01-22] MEDS ORDERED: FAMOTIDINE 20 MG TAB PO PRN (05:47)
[2023-01-22] MEDS ORDERED: GLUCAGON FOR INJ 1 MG VIAL SQ PRN (05:47)
[2023-01-22] MEDS ORDERED: PROMETHAZINE HCL 12.5 MG in SODIUM CHLORIDE 0.9% 50 ML IV PRN (05:47)
[2023-01-22] MEDS ORDERED: oxyCODONE HCL IR 5 MG TAB (IMMEDIATE RELEASE) PO PRN (05:47)
[2023-01-22] MEDS ORDERED: GLUCOSE 10 TAB/TUBE PO PRN (05:47)
[2023-01-22] MEDS ORDERED: LORazepam 0.5 MG TAB PO PRN (05:47)
[2023-01-22] MEDS ORDERED: CARBOHYDRATES FOR HYPOGLYCEMIA PO PRN (05:47)
[2023-01-22] MEDS ORDERED: NITROGLYCERIN SL 0.4 MG/TAB TAB SL PRN (05:47)
[2023-01-22] MEDS ORDERED: GLUCOSE 40% GEL 15 GM TUBE PO PRN (05:47)
[2023-01-22] MEDS ORDERED: DEXTROSE 50% 50 ML SYRINGE IV PRN (05:47)
[2023-01-22] MEDS ORDERED: FLUTICASONE PROPIONATE NA SPR 16 GM BTL PRN (06:18)
--- NOTE | 2023-01-22 07:03 | XRay Report ---
SINGLE VIEW CHEST CLINICAL HISTORY: Tachycardia FINDINGS: An AP, portable, upright chest radiograph is compared to study dated 09/11/2010. The cardiome diastinal silhouette is top normal for projection. There are low lung volumes with bibasilar atelecta sis. No large pleural effusion or pneumothorax is seen. The skeletal structures appear osteopenic. Th e bony thorax is grossly intact. IMPRESSION: Low lung volumes with no active disease in the chest. ACT 112: Negative or not required by law. Electronically signed by: Chava Arreguin M.D. 01/22/2023 7:02 AM
--- NOTE | 2023-01-22 07:05 | Ultrasound Report ---
ULTRASOUND OF THE CAROTID ARTERIES CLINICAL HISTORY: Transient ischemic attack. COMPARISON STUDY: No priors. TECHNIQUE: Real-time, grayscale, and color Doppler sonography of the carotid arteries is performed. I mages are reviewed in the transverse and longitudinal planes. FINDINGS: The carotid arteries are patent bilaterally and demonstrate antegrade flow. There is no significant a therosclerotic plaque identified. Normal doppler arterial waveforms are seen throughout. The cardiac pulsations appear irregularly irregular. Velocity measurements are listed below. Common carotid peak systolic velocity (cm/sec): RIGHT: 85 LEFT: 75 ICA proximal peak systolic velocity (cm/sec): RIGHT: 41 LEFT: 37 ICA mid peak systolic velocity (cm/sec): RIGHT: 56 LEFT: 52 ICA distal peak systolic velocity (cm/sec): RIGHT: 59 LEFT: 61 ICA/CC peak systolic ratio: RIGHT: 0.7 LEFT: 0.8 Antegrade flow was shown in the vertebral arteries. The external carotid arteries are patent. IMPRESSION: 1. There is no sonographic evidence of hemodynamically significant stenosis in the right or left west tid arterial system. 2. Antegrade flow is shown in the vertebral arteries. 3. The cardiac pulsations appear irregularly irregular. Correlate for arrhythmia. ACT 112: Negative or not required by law. Electronically signed by: Chava Arreguin M.D. 01/22/2023 7:04 AM
[2023-01-22] MEDS ORDERED: NSS + 20MEQ KCL 20 MEQ/1,000 ML BAG IV ONE (07:53)
--- NOTE | 2023-01-22 08:06 | Neurology Consultation ---
Date of Consultation January 22, 2023 Assessment & Plan (1) Transient visual disturbance, right: (2) Arthralgia: (3) Hypothyroidism: (4) Weakness: (5) Long COVID: (6) Paroxysmal atrial flutter: (7) Idiopathic polyneuropathy: Plan this patient had an episode of transient visual disturbance to her right visual chambers lasting 15 minutes followed by a headache. This is a classic migraine. There is no evidence for stroke on MRI and I do not believe this was a TIA. Patient has a constellation of chronic symptoms post Covid-19 including diffuse arthralgias of joint and spine, generalized weakness, headaches, and heart rhythm issues. She was given the diagnosis of "long Covid-19". Her neurologic examination is largely unremarkable. She has had some fatigable weakness in the past and has been labeled as myasthenia gravis. I am not sure she has this condition and electrical study 2 years ago was unremarkable and antibody titers 3 months ago or normal. She does state that Mestinon made her feel better however. The patient has a history of hypothyroidism and her TSH is markedly elevated at 13. This could certainly contribute to some of her symptoms listed above. Recommendations: 1. I do not have any testing from a neurologic standpoint except perhaps to sug gest an LP to rule out any chronic inflammatory condition. This could be done as an outpatient as well. 2. consider increasing her thyroid medication 3. consider a course of steroids for her symptoms as well ( this also could be done as an outpatient ). 4. follow up with Dr. Engel as an outpatient. Overall, I spent a total of 100 minutes with this case including review of records, review of MRI and CT films, report generation, direct evaluation the patient at bedside, and discussing the case with the patient and RN at bedside and Dr. Beebe including differential diagnosis and treatment options. History of Present Illness Reason for Consultation: Patient is a 62-year-old, who I was asked to see the request of Dr. Alcantar, for neurologic consultation regarding stroke-like symptoms. Requesting Physician: Dr. Alcantar Attending Physician: Parris Beebe MD History of Present Illness Patient has had a longstanding history (at least since 2009) of symptoms that were suggestive of myasthenia gravis. She claims that she has had intermittent facial droop coming and going since her teen years and she would at times get short of breath easily and drop things. She says in the past he has had droopy eyelids but no significant double vision. She has seen multiple clinicians for this problem, some telling her that she does not have myasthenia gravis and some telling her that perhaps she does. She was given Mestinon for a while which she thought helped considerably but stopped it at least 2 years ago as it was giving her side effects. Patient has had a thyroid issue for many years and has been better controlled on generic [place] thyroid (pig gland) than on levothyroxine. She claims that 6 months ago her thyroid level was "normal". She tells me that in 2019 she had a significant Covid-19 illness leaving her with multiple symptoms ever since. These would include heart rhythm problems, diffuse joint and spine pain, variable headaches and considerable fatigue and easy fatigability. By a year and a half she was slowly improving but apparently had Covid-19 a 2nd time in December of 2021. she has been quite symptomatic since this time. Over the last 6 months she has had dry skin, hair loss, and fatigue. She has had paroxysmal atrial flutter and has been on Eliquis. she saw Dr. Eisenberg in 2020. Back in December 2020 EMG nerve conduction study showed very mild polyneuropathy. She has seen Dr. Engel in September of 2022 for chronic symptoms including weakness numbness and pain. She has tentative diagnosis of possible cervical spinal stenosis, polyneuropathy, neuromuscular junction disorder such as myasthenia gravis and "long Covid-19". JACOB and rheumatoid factor were unremarkable. Acetylcholine receptor antibody titers were all normal including blocking, binding, and modulating. CK was 23 and CRP was 0.5. In October of 2022 MRI of the cervical spine showed some diffuse degenerative changes with disc in bone but no signal spinal stenosis or cord issues. I reviewed these films. MRI of the brain in November of 2022 showed very mild old small vessel ischemic disease changes only. I reviewed these films. She followed up with Neurology in December of this year and she is going to be sent for 2nd opinion regarding myasthenia gravis ( by neuromuscular specialist at the [facility]). Pain management had nothing further to offer her. She has seen Dr. Bales who feels that she has "long Covid-19" and that perhaps steroids would help her. Steroids were not given because of her cardiac issues. Julio on January 21, the patient was working on her iPad at around 1900 . She had the onset of flashing lights to the periphery on the right with some fluttering of her vision. This moved to near midline and then faded back away. It lasted 15 minutes in its entirety. After this she had a right-sided and frontal headache and some jaw pain on the right ( which is an intermittent symptom of hers). She had no other symptoms but arrived at the emergency room She arrived 2050 on January 21 with a temperature 36.7, pulse 77 regular, respiratory rate 18, blood pressure 140/68, O2 saturation 98 percent. Her neurologic examination which described as normal. Chest x-ray was unremarkable. CT scan of the head was unremarkable I reviewed these films. Carotid ultrasound showed no significant stenoses. MRI of the brain showed no acute stroke and was unchanged from the previous MRI. CBC was unremarkable. Chem profile showed a borderline creatinine of 1.2 and a mildly elevated ALT of 57. TSH was markedly elevated at 13.2 and Lyme antibody titers were unremarkable. This morning she is stable with no significant symptoms although she has an occipital headache. She has the chronic fatigue and diffuse joint pain as before. Allergies Allergy/AdvReac Type Severity Reaction Status Date / Time Penicillins Allergy Mild Unknown-CHILDHOOD Verified 01/16/23 09:39 REACTION-GI? latex Allergy Unknown Skin Verified 01/16/23 09:39 redness-RASH fentanyl AdvReac Severe Vomiting-"MAKES Verified 01/16/23 09:39 PT VERY ILL" doxycycline AdvReac Intermediate Vomiting Verified 01/16/23 09:39 Gadolinium-Containing AdvReac Intermediate Verified 01/16/23 09:39 Contrast Medi morphine AdvReac Unknown Unknown Verified 01/16/23 09:39 Home Medications Medication Instructions Recorded Confirmed Type cetirizine 10 mg tablet (Zyrtec) 10 mg PO QAM 08/22/19 01/22/23 History ascorbic acid (vitamin C) 1,000 mg 1,000 mg PO QAM 11/17/20 01/22/23 History tablet,extended release coenzyme Q10 100 mg capsule 100 mg PO HS qam 11/17/20 01/22/23 History fluticasone furoate 27.5 1 spray intranasal DAILY PRN 11/17/20 01/22/23 History mcg/actuation nasal allergy symptoms spray,suspension (Flonase Sensimist) magnesium gluconate 27 mg 27 mg PO HS 11/17/20 01/22/23 History magnesium (500 mg) tablet albuterol sulfate 90 mcg/actuation 1 inh inhalation QID PRN sob 07/28/21 01/22/23 History aerosol inhaler albuterol sulfate 2.5 mg/3 mL 2.5 mg inhalation Q4H PRN Wheezing 06/07/22 01/22/23 History (0.083 %) solution for nebulization apixaban 5 mg tablet 5 mg PO BID 06/07/22 01/22/23 History mupirocin 2 % topical ointment 1 applic topical BID PRN flares 06/07/22 01/22/23 History naltrexone 6 mg PO HS 10/05/22 01/22/23 History thyroid (pork) 120 mg tablet (TELEPHONE STERILIZER 120 mg PO DAILY #30 tabs 10/23/22 01/22/23 Rx Thyroid) bromelains 500 mg tablet 500 mg PO HS 12/26/22 01/22/23 History cholecalciferol (vitamin D3) 25 50 mcg PO QAM 12/26/22 01/22/23 History mcg (1,000 unit) capsule empagliflozin 10 mg tablet 10 mg PO QAM 12/26/22 01/22/23 History (Jardiance) metoprolol succinate 50 mg 50 mg PO QAM 12/26/22 01/22/23 History tablet,extended release 24 hr quercetin 500 mg capsule 500 mg PO QAM 12/26/22 01/22/23 History thyroid (pork) 60 mg tablet (TELEPHONE STERILIZER 60 mg PO 3XWK 12/26/22 01/22/23 History Thyroid) zinc acetate 50 mg (zinc) capsule 50 mg PO QAM 12/26/22 01/22/23 History (Galzin) colchicine 0.6 mg capsule 0.6 mg PO BID 01/16/23 01/22/23 History calcium carbonate 600 mg calcium 600 mg PO QPM 01/22/23 01/22/23 History (1,500 mg) tablet (Calcium) cyanocobalamin (vitamin B-12) 1,000 mcg PO QAM 01/22/23 01/22/23 History 1,000 mcg tablet (Vitamin B-12) famotidine 20 mg tablet 20 mg PO DAILY PRN Heartburn 01/22/23 01/22/23 History metronidazole 1 % topical gel 1 applic topical QAM 01/22/23 01/22/23 History (Metrogel) triamcinolone acetonide 0.1 % 1 applic topical BID 01/22/23 01/22/23 History topical cream Patient History Medical History Allergic rhinitis Arthralgia Asthma Chronic sinusitis Endometrial polyp History of colon polyps Hypertrophy of nasal turbinates Hypothyroidism Migraine Mitral valve prolapse No noted MVP, + mild MR per 05/31/20 echo Myasthenia gravis Possible Per neurology 12/2020, "Current examination does not really fit, nor testing that would be congruent with MG (negative antibodies/no decrement on EMG). 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 Per cardiology (07/13/21): "CHADS- VASc = 1 (gender).. No pharmacologic therapy is necessary.. Return to clinic as needed." Prediabetes Surgical History History of colonoscopy Colonoscopy (08/28/19): MAC, no issues per anesthesia progress note History of malignant hyperthermia Patient had post-op fever, syncope after sinus surgery (15 years) > was told to tell future providers she had "Malignant hyperthermia" History of sinus surgery x2 History of surgery on right wrist History of unilateral salpingectomy Family History Mother Family hx of colon cancer Heart disease Colorectal cancer Father , age 80 with dementia and heart disease Diabetes Dementia Heart disease Myocardial infarction Other No family history of adverse response to anesthesia Denies family history of Ovarian cancer Prostate cancer Breast cancer Social History (Updated 01/22/23 @ 09:10 by Tacho Hoyos MD) Smoking Status: Former smoker Tobacco Type: Cigarettes Age Started Using Tobacco: 18; Age Quit Using Tobacco: 49; packs per day: 1.5; Second Hand Exposure: No; Do You Dip or Chew Tobacco: No; Hx Alcohol Use: No Hx Substance Use: No Preferred Language: Romansh Communication Ability: Effective Visual Impairment: No Limitations Hearing Ability: Normal Expert Medical Writer Required: No Beliefs That Will Affect Care: None marital status: Single Current Living Situation: Alone current occupational status: unemployed 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 How many Children do You have: 0 Feels Safe at Home: Yes Childhood Exposure to Second-Hand Smoke: No Diet: regular Dental Care, Regularly: Yes Physical Activity Frequency: Daily Seatbelt Use: always Sunscreen Use: Yes Assistive Devices: None Review of Systems Constitutional: + fatigue and + weakness; no fever Eyes: no diplopia, no eye pain and no worsening vision Ear, Nose, Mouth, Throat: no ear pain, no tinnitus, no hearing loss, no dizziness, no snoring, no hoarseness and no dysphagia Respiratory: no cough and no dyspnea Cardiovascular: no chest pain, no palpitations and no lightheadedness Gastrointestinal: no abdominal pain, no nausea and no vomiting Genitourinary: no dysuria, no urinary frequency and no urinary incontinence Musculoskeletal: + back pain, + neck pain and + joint pain; no radicular pain and no myalgia Integumentary: no rash and no lesions Neurologic: + generalized weakness, + numbness and + headache(s); no gait abnormality, no localized weakness, no tingling, no tremor(s), no abnormal movements, no abnormal speech, no confusion and no memory loss Psychiatric: no depression, no irritability, no anxiety, no difficulty concentrating, no confusion and no hallucinations Endocrine: no fatigue and no flushing Hematologic / Lymphatic: no easy bleeding and no easy bruising Allergy / Immunological: no urticaria and no problem reported Exam (Neuro) Physical Exam: The patient is right-handed. The patient is awake, alert, and attentive. Speech is normal without any aphasia or dysarthria. The patient can name objects, repeat phrases, and has normal spontaneous speech. Mentation and thought processes are intact, with orientation to person, place and time, and normal fund of knowledge. Attention and concentration are normal. Mood and affect are normal and appropriate. General appearance and grooming are normal. Short and long-term memory are intact. Pupils are 4 mm bilaterally and reactive to light. Extraocular eye muscles are intact without nystagmus. Visual acuity and visual chambers seem normal grossly to confrontation. There are no deficits to sensation in the face in all 3 distributions of the fifth cranial nerve bilaterally. Corneal reflexes are positive bilaterally. Facial strength and symmetry was normal bilaterally. Hearing seems normal bilaterally. Palate moves well without asymmetry. There is normal sternocleidomastoid and trapezius (shoulder shrug) strength bilaterally. Tongue is midline with good strength bilaterally. Neck has a full range of motion without discomfort. There are no cervical bruits bilaterally. There are no cranial or ocular bruits. Heart is without murmur. There is a regular rhythm and rate. Cervical, thoracic, and lumbar spine are nontender to palpation. Gait is narrow based, with good arm swing, turns, and stance. With outstretched arms there is no drift. There are no resting, postural, or action tremors. There is no ataxia with finger to nose testing. There is good facility in the hands. No other abnormal involuntary movements are noted. Motor strength is 5/5 diffusely in the arms bilaterally including deltoids, biceps, triceps, brachioradialis, wrist flexors and extensors, orchard hand, and intrinsic hand muscles. Motor strength is 5/5 diffusely in the legs bilaterally including hip flexors, quadriceps, hamstrings, gastrocnemius, tibialis anterior, tibialis posterior, and Peroneii muscles. Toe extensors are normal and there is good bulk in the extensor digitorum brevis muscles bilaterally. The limbs have good tone without rigidity or spasticity. There is no atrophy noted in the muscles. Muscle bulk is normal, there is no tenderness to palpation, no myotonia to percussion, and no fasciculations seen. Sensory examination is intact to touch and pin throughout all 4 limbs diffusely. Reflexes are 2/4 in the biceps, triceps, brachioradialis, quadriceps, and Achilles tendons bilaterally. There is no clonus bilaterally. Toes are downgoing with plantar stimulation bilaterally. Peripheral pulses are present and of normal quality distally in all 4 limbs. There is no peripheral edema noted in the limbs. Results & Data Vital Signs (Past 12 Hours) Vital Signs Temp Pulse Pulse Resp BP BP Pulse Ox 01/22/23 07:30 105 H 13 01/22/23 07:00 120 H 20 01/22/23 06:36 112 H 13 01/22/23 06:00 95 H 15 97 01/22/23 06:00 109/75 01/22/23 05:30 115 H 17 95 01/22/23 05:30 127/65 01/22/23 05:24 84 13 96 01/22/23 04:30 87 15 01/22/23 04:30 96/75 L 01/22/23 04:14 120/72 01/22/23 04:14 57 L 15 01/22/23 04:00 62 14 01/22/23 03:30 59 L 12 96 01/22/23 04:00 64 01/22/23 03:01 143/88 H 01/22/23 03:01 58 L 12 97 01/22/23 03:00 112 H 12 97 01/22/23 02:30 65 13 99 01/22/23 02:30 131/100 01/22/23 02:23 120 H 13 95 01/22/23 02:23 109/85 01/22/23 00:25 75 01/22/23 02:00 91 01/22/23 01:30 96 01/22/23 01:26 97 01/22/23 00:30 68 12 97 01/22/23 00:24 83 12 93 01/21/23 22:06 135 H 13 141/100 H 98 01/21/23 20:51 36.7 C 77 18 144/68 H 98 O2 Del Method 01/22/23 07:30 01/22/23 07:00 01/22/23 06:36 01/22/23 06:00 01/22/23 06:00 01/22/23 05:30 01/22/23 05:30 01/22/23 05:24 01/22/23 04:30 01/22/23 04:30 01/22/23 04:14 01/22/23 04:14 01/22/23 04:00 01/22/23 03:30 01/22/23 04:00 01/22/23 03:01 01/22/23 03:01 01/22/23 03:00 01/22/23 02:30 01/22/23 02:30 01/22/23 02:23 01/22/23 02:23 01/22/23 00:25 01/22/23 02:00 01/22/23 01:30 01/22/23 01:26 01/22/23 00:30 01/22/23 00:24 01/21/23 22:06 Room Air 01/21/23 20:51 Room Air PG Care Time/CCT Total # of Minutes Spent Total Time Spent with Patient: Total time spent is greater than 50% in coordination of care (as documented) at patient's floor/unit and/or counseling patient: Coding Level of Care Code 88219 INT INP/OBS CARE 3/75MIN Diagnoses Transient visual disturbance, right H53.9 Arthralgia M25.50 Hypothyroidism E03.9 Weakness R53.1 Long COVID U09.9 Paroxysmal atrial flutter I48.92 Idiopathic polyneuropathy G60.9 Time Spent (min) 100
[2023-01-22 08:27] LABS: Estimated Average Glucose 140 mg/dl; Hemoglobin A1C 6.5 % (4.5-5.6)
[2023-01-22] MEDS: INSULIN ASPART PER UNIT CHARGE SC SCH ×2 (08:40→11:50)
--- NOTE | 2023-01-22 08:41 | Electrocardiogram Report ---
Test Reason : Blood Pressure : / mmHG Vent. Rate : 074 BPM Atrial Rate : 074 BPM P-R Int : 180 ms QRS Dur : 080 ms QT Int : 374 ms P-R-T Axes : 060 017 061 degrees QTc Int : 415 ms Sinus rhythm with Premature atrial complexes with Aberrant conduction Otherwise normal ECG When compared with ECG of 11-SEP-2010 15:17, Aberrant conduction is now Present Confirmed by Vicente Horner ([id number]) on 01/22/2023 8:41:06 AM Referred By: REFERRED SELF Confirmed By:Jared Horner
--- NOTE | 2023-01-22 08:42 | Electrocardiogram Report ---
Test Reason : Blood Pressure : / mmHG Vent. Rate : 087 BPM Atrial Rate : 098 BPM P-R Int : 184 ms QRS Dur : 076 ms QT Int : 346 ms P-R-T Axes : 051 032 063 degrees QTc Int : 416 ms Sinus rhythm with marked sinus arrhythmia with Premature supraventricular complexes Low voltage QRS Nonspecific T wave abnormality Abnormal ECG When compared with ECG of 21-JAN-2023 22:10, (unconfirmed) Sinus rhythm has replaced Atrial flutter Confirmed by Vicente Horner ([id number]) on 01/22/2023 8:41:40 AM Referred By: REFERRED SELF Confirmed By:Jared Horner
--- NOTE | 2023-01-22 08:42 | Electrocardiogram Report ---
Test Reason : Blood Pressure : / mmHG Vent. Rate : 074 BPM Atrial Rate : 074 BPM P-R Int : 180 ms QRS Dur : 080 ms QT Int : 374 ms P-R-T Axes : 060 017 061 degrees QTc Int : 415 ms Sinus rhythm with Premature atrial complexes with Aberrant conduction Otherwise normal ECG When compared with ECG of 11-SEP-2010 15:17, Aberrant conduction is now Present Confirmed by Vicente Horner ([id number]) on 01/22/2023 8:42:27 AM Referred By: REFERRED SELF Confirmed By:Jared Horner
--- NOTE | 2023-01-22 08:42 | Electrocardiogram Report ---
Test Reason : Blood Pressure : / mmHG Vent. Rate : 119 BPM Atrial Rate : 315 BPM P-R Int : 000 ms QRS Dur : 078 ms QT Int : 340 ms P-R-T Axes : 081 046 114 degrees QTc Int : 478 ms Atrial flutter with variable A-V block Nonspecific ST and T wave abnormality Abnormal ECG When compared with ECG of 21-JAN-2023 22:10, (unconfirmed) Atrial flutter has replaced Sinus rhythm Vent. rate has increased BY 45 BPM Inverted T waves have replaced nonspecific T wave abnormality in Anterior leads Confirmed by Vicente Horner ([id number]) on 01/22/2023 8:41:55 AM Referred By: REFERRED SELF Confirmed By:Jared Horner
[2023-01-22] MEDS ORDERED: METOPROLOL SUCC 25MG EXT REL TAB PO SCH (09:00)
[2023-01-22] MEDS ORDERED: ARMOUR THYROID 30 MG TAB PO SCH (09:00)
[2023-01-22] MEDS ORDERED: CETIRIZINE HCL 10 MG TABLET PO SCH (09:00)
[2023-01-22] MEDS ORDERED: TRIAMCINOLONE ACET 0.1% CR 15 GM TUBE TOP SCH (09:00)
[2023-01-22] MEDS ORDERED: APIXABAN 5 MG TABLET PO SCH (09:00)
[2023-01-22] MEDS ORDERED: CYANOCOBALAMIN (B-12) 500 MCG TABLET PO SCH (09:00)
[2023-01-22] MEDS ORDERED: COLCHICINE 0.6 MG TAB PO SCH (09:00)
[2023-01-22 09:33] LABS: Basophils # (auto) 0.07 K/uL (0-0.2); Eosinophils # (auto) 0.11 K/uL (0-0.50); Eosinophils % (auto) 1.5 %; Hematocrit (blood only) 42.1 % (37.0-47.0); Hemoglobin 15.1 g/dl (12.0-16.0); Immature Granulocytes # (auto) 0.02 K/uL (0.01-0.20); Immature Granulocytes % (auto) 0.3 %; Lymphocytes # (auto) 2.95 K/uL (1.2-3.4); Lymphocytes % (auto) 41.5 %; Mean Corpuscular Hemoglobin 32.4 pg (25.0-34.0); Mean Corpuscular Hgb Conc 35.9 g/dL (32.0-36.0); Mean Corpuscular Volume 90.3 fL (80.0-100.0); Mean Platelet Volume 10.5 fL (9.4-12.4); Monocytes # (auto) 0.43 K/uL (0.11-0.59); Monocytes % (auto) 6.1 %; Neutrophils # (auto) 3.52 K/uL (1.40-6.50); Neutrophils % (auto) 49.6 %; Platelet Count 322 K/uL (130-400); RDW Coefficient of Variation 12.6 % (11.5-14.5); RDW Standard Deviation 41.5 fL (36.4-46.3); Red Blood Count 4.66 M/uL (4.20-5.40)
[2023-01-22 09:51] LABS: BUN Creatinine Ratio 19.8 (10-20); Calcium 9.4 mg/dl (8.6-10.3); Chol HDL Ratio 4.8 (0-5); Creatinine Clr Calc Pharmacy 70.1 ml/min; Est GFR (African American) 69.6 ml/min; Potassium 4.5 mmol/L (3.5-5.1)
--- NOTE | 2023-01-22 12:30 | Hospitalist Progress Note ---
Date of Service January 22, 2023 Assessment & Plan (1) Classic migraine: Plan: Presented with headache and neurological symptoms with history of similar occurrence at home with subsequent resolution in a day or so She has been taking Tylenol to control the headache Appreciate neuro input and recommendation She was advised to continue Tylenol to control the migraine headache or can take Excedrin Migraine as an outpatient She will be seen by neurologist as an outpatient Hypothyroidism, TSH elevated, FT4 within lower normal limit Will increase the replacement by 25 mcg (2) Transient visual disturbance, right: Plan: TIA and stroke have been ruled out with negative tests and clinically Appreciate neurology input and recommendation Echo of the heart showed atrial flutter, LV is normal in size, mild concentric LVH, LV wall motion is normal with EF of 50 to 55%, borderline LA enlargement, trace MR trace TR and no evidence of atrial septal defect Heart rate remains controlled in the telemetry unit Other medical conditions are stable and are as follow: DM 2 on oral medications, well-controlled as of recent hemoglobin A1c of 6.5 last September 2022 Basal bolus insulin, ISS BG goal 1 10-1 40, carb count coverage, update hemoglobin A1c Bronchial asthma, stable Anxiety/mood disorder, patient mildly anxious during encounter Long COVID-19 syndrome/ polyarthralgia/idiopathic polyneuropathy on naltrexone, colchicine Tickborne infection status post Rx Past tobacco abuse DVT prophylaxis. Paul Full code Admission and Anticipated Discharge Date Admission Date: January 22, 2023 Subjective 01/22/2023 The patient was seen and examined in telemetry unit She still has some headache but denies any other neurological symptoms She has had these symptoms before and which may last for about a day and then subside He takes Tylenol for headache but no other medications for migraine Review of Systems Review of Systems: All systems reviewed and are unremarkable except as noted below Physical Exam Physical Exam: Lying in bed with some distress due to headache Constitutional: well developed, well nourished, + ill appearing and + obese Eyes: PERRL, conjunctivae normal, anicteric sclerae ENMT: external ear and nose normal, oropharynx normal Neck: trachea midline, no thyromegaly Respiratory: no respiratory distress Auscultation: lungs clear to auscultation bilaterally Cardiovascular: Rate/Rhythm: regular rate and regular rhythm; not tachycardic Heart Sounds: normal S1 and normal S2; no murmur Extremities: no edema Gastrointestinal (Abdomen): Inspection/Auscultation: normal bowel sounds; abdomen not distended Percussion/Palpation: abdomen soft; abdomen nontender Musculoskeletal: No acute arthritis involving any joint. Complains to have arthralgias involving multiple joints Neurologic: normal touch/pain/proprioception and moves all extremities; no focal motor deficits Psychiatric: A+Ox3, euthymic affect Lymphatic: no cervical or axillary lymphadenopathy Results & Data Results & Data Vital Signs (Past 12 Hours) Vital Signs Temp Pulse Pulse Resp BP BP Pulse Ox 01/22/23 11:57 36.4 C L 60 20 130/78 96 01/22/23 08:00 01/22/23 07:30 105 H 13 01/22/23 07:00 120 H 20 01/22/23 06:36 112 H 13 01/22/23 06:00 95 H 15 97 01/22/23 06:00 109/75 01/22/23 05:30 115 H 17 95 01/22/23 05:30 127/65 01/22/23 05:24 84 13 96 01/22/23 04:30 87 15 01/22/23 04:30 96/75 L 01/22/23 04:14 120/72 01/22/23 04:14 57 L 15 01/22/23 04:00 62 14 01/22/23 03:30 59 L 12 96 01/22/23 04:00 64 01/22/23 03:01 143/88 H 01/22/23 03:01 58 L 12 97 01/22/23 03:00 112 H 12 97 01/22/23 02:30 65 13 99 01/22/23 02:30 131/100 01/22/23 02:23 120 H 13 95 01/22/23 02:23 109/85 01/22/23 00:25 75 01/22/23 02:00 91 01/22/23 01:30 96 01/22/23 01:26 97 01/22/23 00:30 68 12 97 01/22/23 00:24 83 12 93 O2 Del Method 01/22/23 11:57 Room Air 01/22/23 08:00 Room Air 01/22/23 07:30 01/22/23 07:00 01/22/23 06:36 01/22/23 06:00 01/22/23 06:00 01/22/23 05:30 01/22/23 05:30 01/22/23 05:24 01/22/23 04:30 01/22/23 04:30 01/22/23 04:01/22/23 04:01/22/23 04:00 01/22/23 03:30 01/22/23 04:00 01/22/23 03:01 01/22/23 03:01 01/22/23 03:00 01/22/23 02:30 01/22/23 02:30 01/22/23 02:23 01/22/23 02:23 01/22/23 00:25 01/22/23 02:00 01/22/23 01:30 01/22/23 01:26 01/22/23 00:30 01/22/23 00:24 Laboratory Results Short CBC 01/21/23 01/22/23 Range/Units 21:56 09:13 WBC 9.82 7.10 (4.8-10.8) K/ul Hgb 16.1 H 15.1 (12.0-16.0) g/dl Hct 45.3 42.1 (37.0-47.0) % Plt Count 352 322 (130-400) K/uL BMP 01/21/23 01/22/23 21:56 09:13 Sodium 141 141 Potassium 3.8 4.5 Chloride 105 106 Carbon Dioxide 30 29 BUN 20 20 Creatinine 1.23 H 1.01 Glucose 97 139 H Calcium 10.0 9.4 Liver Function 01/21/23 Range/Units 21:56 Total Bilirubin 0.3 (0.2-1.0) mg/dl AST 30 (13-39) U/L ALT 57 H (7-52) U/L Alkaline Phosphatase 57 (34-104) U/L Albumin 4.6 (3.4-5.0) gm/dl Urine 01/21/23 Range/Units 22:05 Urine Color Yellow Urine Appearance Clear (Clear) Urine pH 6.0 (4.5-7.5) Ur Specific [place] 1.023 (1.000-1.030) Urine Protein Negative (Negative) Urine Glucose (UA) 3+ H (Negative) Medications Administered Current Inpatient Medications Acetaminophen (Acetaminophen 325 Mg Tab) 650 mg PO Q4H PRN PRN Reason: Pain or Fever Stop: 02/21/23 05:46 Last Admin: 01/22/23 09:12 Dose: 650 mg Apixaban (Apixaban 5 Mg Tablet) 5 mg PO BID [facility] Stop: 02/21/23 08:59 Last Admin: 01/22/23 09:14 Dose: 5 mg Aspirin (Aspirin 81 Mg Ectab) 81 mg PO [facility] Stop: 02/22/23 08:59 Cetirizine HCl (Cetirizine Hcl 10 Mg Tablet) 10 mg PO [facility] Stop: 02/21/23 08:59 Last Admin: 01/22/23 09:14 Dose: 10 mg Colchicine (Colchicine 0.6 Mg Tab) 0.6 mg PO BID [facility] Stop: 02/21/23 08:59 Last Admin: 01/22/23 09:13 Dose: 0.6 mg Cyanocobalamin (Cyanocobalamin (B-12) 500 Mcg Tablet) 1,000 mcg PO [facility] Stop: 02/21/23 08:59 Last Admin: 01/22/23 09:14 Dose: 1,000 mcg Dextrose (Dextrose 50% 50 Ml Syringe) 25 - 50 ml IV UD PRN; Protocol PRN Reason: Hypoglycemia Protocol Stop: 02/21/23 05:46 Famotidine (Famotidine 20 Mg Tab) 20 mg PO DAILY PRN PRN Reason: Heartburn Stop: 02/21/23 05:46 Fluticasone Propionate (Fluticasone Propionate Na Spr 16 Gm Btl) 1 sprays NA DAILY PRN PRN Reason: allergy symptoms Stop: 02/21/23 06:17 Glucagon (Glucagon For Inj 1 Mg Vial) 1 mg SQ UD PRN; Protocol PRN Reason: Hypoglycemia Protocol Stop: 02/21/23 05:46 Glucose (Glucose 10 Tab/Tube) 4 - 8 tab PO UD PRN; Protocol PRN Reason: Hypoglycemia Treatment Stop: 02/21/23 05:46 Glucose (Glucose 40% Gel 15 Gm Tube) 15 - 30 gm PO UD PRN; Protocol PRN Reason: Hypoglycemia Protocol Stop: 02/21/23 05:46 Promethazine HCl 12.5 mg/ (Sodium Chloride) 50.5 mls @ 202 mls/hr IV Q6H PRN PRN Reason: Nausea And Vomiting Stop: 02/21/23 05:46 Potassium Chloride/Sodium Chloride (Normal Saline W/20 Meq Kcl) 20 meq in 1,000 mls @ 100 mls/hr IV .Q10H ONE; Protocol Stop: 01/22/23 17:52 Last Admin: 01/22/23 09:12 Dose: 100 mls/hr Insulin Aspart (Insulin Aspart Per Unit Charge) 0 units SC ACHS [facility] Stop: 02/21/23 05:46 Last Admin: 01/22/23 11:50 Dose: Not Given Lorazepam (Lorazepam 0.5 Mg Tab) 0.5 mg PO TID PRN PRN Reason: Anxiety Stop: 02/21/23 05:46 Metoprolol Succinate (Metoprolol Succ 25mg Ext Rel Tab) 25 mg PO QAM [facility] Stop: 02/21/23 08:59 Last Admin: 01/22/23 09:12 Dose: 25 mg Miscellaneous (Naltrexone: Order Awaiting Action) 1 each N/A QS [facility] Stop: 02/21/23 07:59 Last Admin: 01/22/23 11:51 Dose: Not Given Miscellaneous (Carbohydrates For Hypoglycemia ) 15 - 30 gm PO UD PRN PRN Reason: Hypoglycemia Protocol Stop: 02/21/23 05:46 Nitroglycerin (Nitroglycerin Sl 0.4 Mg/Tab Tab) 0.4 mg SL UD PRN PRN Reason: Chest Pain Stop: 02/21/23 05:46 Oxycodone HCl (Oxycodone Hcl Ir 5 Mg Tab (Immediate Release)) 5 mg PO Q4H PRN PRN Reason: Pain Stop: 02/05/23 05:46 Thyroid ([place] Thyroid 30 Mg Tab) 120 mg PO DAILY [facility] Stop: 02/21/23 08:59 Last Admin: 01/22/23 09:14 Dose: 120 mg Triamcinolone Acetonide (Triamcinolone Acet 0.1% Cr 15 Gm Tube) 1 appln TOP BID [facility] Stop: 02/21/23 08:59 Last Admin: 01/22/23 09:13 Dose: 1 appln
[2023-01-22] MEDS ORDERED: ARMOUR THYROID 30 MG TAB PO ONE (14:00)
--- NOTE | 2023-01-23 07:52 | Hospitalist Progress Note ---
Date of Service January 23, 2023 Assessment & Plan (1) Classic migraine: Plan: Presented with headache and neurological symptoms with history of similar occurrence at home with subsequent resolution in a day or so She has been taking Tylenol to control the headache Appreciate neuro input and recommendation She was advised to continue Tylenol to control the migraine headache or can take Excedrin Migraine as an outpatient She will be seen by neurologist as an outpatient Hypothyroidism, TSH elevated, FT4 within lower normal limit Will increase the replacement by 25 mcg (2) Transient visual disturbance, right: Plan: TIA and stroke have been ruled out with negative tests and clinically Appreciate neurology input and recommendation Echo of the heart showed atrial flutter, LV is normal in size, mild concentric LVH, LV wall motion is normal with EF of 50 to 55%, borderline LA enlargement, trace MR trace TR and no evidence of atrial septal defect Heart rate remains controlled in the telemetry unit Other medical conditions are stable and are as follow: DM 2 on oral medications, well-controlled as of recent hemoglobin A1c of 6.5 last September 2022 Basal bolus insulin, ISS BG goal 1 10-1 40, carb count coverage, update hemoglobin A1c Bronchial asthma, stable Anxiety/mood disorder, patient mildly anxious during encounter Long COVID-19 syndrome/ polyarthralgia/idiopathic polyneuropathy on naltrexone, colchicine Tickborne infection status post Rx Past tobacco abuse DVT prophylaxis. Paul Full code Admission and Anticipated Discharge Date Admission Date: January 22, 2023 Subjective 01/22/2023 The patient was seen and examined in telemetry unit She still has some headache but denies any other neurological symptoms She has had these symptoms before and which may last for about a day and then subside He takes Tylenol for headache but no other medications for migraine Review of Systems Review of Systems: All systems reviewed and are unremarkable except as noted below Physical Exam Physical Exam: Lying in bed with some distress due to headache Constitutional: well developed, well nourished, + ill appearing and + obese Eyes: PERRL, conjunctivae normal, anicteric sclerae ENMT: external ear and nose normal, oropharynx normal Neck: trachea midline, no thyromegaly Respiratory: no respiratory distress Auscultation: lungs clear to auscultation bilaterally Cardiovascular: Rate/Rhythm: regular rate and regular rhythm; not tachycardic Heart Sounds: normal S1 and normal S2; no murmur Extremities: no edema Gastrointestinal (Abdomen): Inspection/Auscultation: normal bowel sounds; abdomen not distended Percussion/Palpation: abdomen soft; abdomen nontender Neurologic: normal touch/pain/proprioception and moves all extremities; no focal motor deficits Psychiatric: A+Ox3, euthymic affect Lymphatic: no cervical or axillary lymphadenopathy
--- NOTE | 2023-01-23 07:55 | Discharge Summary ---
Date of Service January 23, 2023 Admission HPI Per Admitting Provider History obtained from patient and records. Medical history significant for PAF on Eliquis, DM 2 on oral medications, hypothyroidism, bronchial asthma, anxiety/mood disorder, polyarthralgia, idiopathic polyneuropathy as per records, long COVID-19 syndrome on naltrexone, migraine, tickborne infection status post Rx, past tobacco abuse. Last confinement 2010 for low back pain. Patient had transient blurred vision on the right eye described as flashing later followed by achy headache different from usual migraine attack. No chest pain, no SOB. No prior episodes. Transient atrial flutter noted at the ER. Patient currently comfortable except for mild headache symptoms. 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 Admission Exam Per Admitting Provider Physical Exam: GENERAL: Comfortable, obese, slightly anxious, no respiratory distress SKIN: Normal color, warm HEENT: [place] palpebral conjunctivae, no ptosis, dry buccal mucosa NECK : Supple, short neck, no tenderness CHEST : CTA, no tenderness HEART : RRR, no obvious murmurs ABDOMEN: Some distention, nontender EXTREMITIES : Minimal LE swelling, no LE tenderness, no other conspicuous deformities noted NEUROLOGIC : Coherent, no facial asymmetry, no other gross focality Principal Diagnosis Classic migraine, strokelike symptoms resolved, long COVID, paroxysmal atrial flutter Discharge Exam Physical Exam: Lying in bed with some distress due to headache Constitutional: well developed, well nourished, + ill appearing and + obese Eyes: PERRL, conjunctivae normal, anicteric sclerae ENMT: external ear and nose normal, oropharynx normal Neck: trachea midline, no thyromegaly Respiratory: no respiratory distress Auscultation: lungs clear to auscultation bilaterally Cardiovascular: Rate/Rhythm: regular rate and regular rhythm; not tachycardic Heart Sounds: normal S1 and normal S2; no murmur Extremities: no edema Gastrointestinal (Abdomen): Inspection/Auscultation: normal bowel sounds; abdomen not distended Percussion/Palpation: abdomen soft; abdomen nontender Musculoskeletal: No acute arthritis involving any joint. Complains to have arthralgias involving multiple joints Neurologic: normal touch/pain/proprioception and moves all extremities; no focal motor deficits Psychiatric: A+Ox3, euthymic affect Lymphatic: no cervical or axillary lymphadenopathy Discharge Data Allergies Allergy/AdvReac Type Severity Reaction Status Date / Time Penicillins Allergy Mild Unknown-CHILDHOOD Verified 01/16/23 09:39 REACTION-GI? latex Allergy Unknown Skin Verified 01/16/23 09:39 redness-RASH fentanyl AdvReac Severe Vomiting-"MAKES Verified 01/16/23 09:39 PT VERY ILL" doxycycline AdvReac Intermediate Vomiting Verified 01/16/23 09:39 Gadolinium-Containing AdvReac Intermediate Verified 01/16/23 09:39 Contrast Medi morphine AdvReac Unknown Unknown Verified 01/16/23 09:39 Consultations 01/22/23 05:47 Consult Neurology Routine Ordered Studies 01/21/23 22:00 CT head/brain wo con Stat 01/22/23 00:15 MR brain wo con Stat 01/22/23 02:46 Carotid duplex [US carotid doppler BI] Routine Hospital Course (1) Classic migraine: (2) Paroxysmal atrial flutter: (3) Hypothyroidism: Plan (1) Classic migraine: Plan: Presented with headache and neurological symptoms with history of similar occurrence at home with subsequent resolution in a day or so She has been taking Tylenol to control the headache Appreciate neuro input and recommendation She was advised to continue Tylenol to control the migraine headache or can take Excedrin Migraine as an outpatient She will be seen by neurologist as an outpatient Hypothyroidism, TSH elevated, FT4 within lower normal limit Will increase the replacement by 25 mcg (2) Transient visual disturbance, right: Plan: TIA and stroke have been ruled out with negative tests and clinically Appreciate neurology input and recommendation Echo of the heart showed atrial flutter, LV is normal in size, mild concentric LVH, LV wall motion is normal with EF of 50 to 55%, borderline LA enlargement, trace MR trace TR and no evidence of atrial septal defect Heart rate remains controlled in the telemetry unit Other medical conditions are stable and are as follow: DM 2 on oral medications, well-controlled as of recent hemoglobin A1c of 6.5 last September 2022 Basal bolus insulin, ISS BG goal 1 10-1 40, carb count coverage, update hemoglobin A1c Bronchial asthma, stable Anxiety/mood disorder, patient mildly anxious during encounter Long COVID-19 syndrome/ polyarthralgia/idiopathic polyneuropathy on naltrexone, colchicine Tickborne infection status post Rx Past tobacco abuse DVT prophylaxis. Paul Full code Total Time Total Time Spent Total Time Spent (In Minutes): 35 minutes Discharge Plan Discharge Items Patient Disposition: Home - Self-Care Reason For Visit: PAF, TIA Discharge Diagnosis: Classic migraine, strokelike symptoms resolved, long COVID, paroxysmal atrial flutter Condition on Discharge: Good Activity: Resume your previous activity Non-emergency contact: Primary Care Provider Call non-emergency contact if: you have any medication questions and your symptoms worsen Follow-up/Referrals: Mike Jenkins MD [Primary Care Provider] - (Date & Time 01/26/2023 10:40 AM Provider Mike Jenkins MD [facility] ) Diet: Carb Consistent or DM2 and Heart Healthy Addtl Attending Provider Instructions: Please take precautions to avoid any falls Take your medications as advised Your TSH was high at 13.22 with free T4 low normal at 1.63-please ask your primary care doctor to adjust the medication as needed Please give appointment with your healthcare providers Pending Studies at Discharge: No Stand-Alone Forms: My [employer], Smoking Cessation Medications and DC Order Prescriptions: Continued colchicine 0.6 mg capsule 0.6 mg PO BID thyroid (pork) [[employer]ER Thyroid] 120 mg tablet 120 mg PO DAILY Qty: 30 0RF Rx Instructions: Take with 60mg tablet to total 180mg daily coenzyme Q10 100 mg capsule 100 mg PO HS magnesium gluconate 27 mg magnesium (500 mg) tablet 27 mg PO HS ascorbic acid (vitamin C) 1,000 mg tablet extended release 1,000 mg PO QAM Flonase Sensimist 27.5 mcg/actuation spray,suspension 1 spray intranasal DAILY PRN (Reason: allergy symptoms) Rx Instructions: into each nostril cholecalciferol (vitamin D3) 25 mcg (1,000 unit) capsule 50 mcg PO QAM naltrexone 6 mg PO HS [employer] Thyroid 60 mg tablet 60 mg PO 3XWK Rx Instructions: Mon,WED,Fri bromelains 500 mg tablet 500 mg PO HS Rx Instructions: administer after a meal Galzin 50 mg (zinc) capsule 50 mg PO QAM quercetin 500 mg capsule 500 mg PO QAM metoprolol succinate 50 mg tablet extended release 24 hr 50 mg PO QAM Jardiance 10 mg tablet 10 mg PO QAM cetirizine [Zyrtec] 10 mg Tablet 10 mg PO QAM albuterol sulfate 90 mcg/actuation Hfa Aerosol Inhaler 1 inh INHALATION QID PRN (Reason: sob) albuterol sulfate 2.5 mg /3 mL (0.083 %) Solution For Nebulization 2.5 mg INHALATION Q4H PRN (Reason: Wheezing) apixaban 5 mg Tablet 5 mg PO BID mupirocin 2 % ointment 1 applic topical BID PRN (Reason: flares) cyanocobalamin (vitamin B-12) [Vitamin B-12] 1,000 mcg Tablet 1,000 mcg PO QAM calcium carbonate [Calcium 600] 600 mg calcium (1,500 mg) Tablet 600 mg PO QPM famotidine 20 mg Tablet 20 mg PO DAILY PRN (Reason: Heartburn) triamcinolone acetonide 0.1 % cream 1 applic TOPICAL BID Rx Instructions: to affected areas metronidazole [Metrogel] 1 % Gel 1 applic TOPICAL QAM Rx Instructions: apply to face Discharge Orders: Discharge Order (Routine); Ordered 01/22/23 Ordered By: Parris Beebe Admission Data Admit Date/Time: 01/22/23 02:41 Attending Provider: Parris Beebe Admit Provider: Celestino Alcantar Primary Care Provider: Mike Jenkins Other Providers: Neri Engel Other Interventions: Discharge Summary Assessment (RN) Last Done: 01/22/23 14:30
[2023-01-23] MEDS ORDERED: ARMOUR THYROID 30 MG TAB PO SCH (09:00)
[2023-01-23] MEDS ORDERED: ASPIRIN 81 MG ECTAB PO SCH (09:00)
== END 2023-01-22 15:00 | disposition home or self-care (01) ==
LOC: ED 20:44 → EDINP 20:44 → 2S 01-22 05:48